=== PATIENT | male | born 1995 | race Asian ===

== ENCOUNTER → 2018-09-21 09:09 | Outpatient (CLI) | payer BC, SELFPAY ==
--- NOTE | 2018-09-21 09:19 | RAD_ITS ---
STUDY: X-RAY CHEST REASON FOR EXAM: Male, 23 years old. Bilateral pneumothorax history TECHNIQUE: Frontal and lateral views of the chest were performed COMPARISON: 13 April 2009 FINDINGS: Examination is moderately limited. The radiograph is overpenetrated making visualization of any and all lung markings difficult. A subtle pneumothorax can be missed. Additionally, an inspiratory/expiratory view was not provided, further limiting evaluation. There are linear interstitial markings in the right apex laterally. These can represent scarring or small loculated pneumothorax. There is surgical suture line in the medial superior apex. There is a surgical suture line in the left lateral apex. There is mild hyperinflation. Assessment of pulmonary parenchyma is extremely limited. Cardiac size is normal. Osseous structures are intact. There is no air under the diaphragms. RAD/Chest PA and Lateral IMPRESSION: 1. Technically limited examination. 2. If question of current pneumothorax evaluation is present a repeat optimal technique examination which includes properly exposed inspiratory and expiratory frontal views is recommended. 3. Right upper lung apical markings, possibly scarring, bulla versus small loculated pneumothorax. Electronically Signed: Ubaldo Nichols, at 16:58 EDT Tel , Service support ,
== END ==
PROVIDERS: Family Provider Family Medicine; PCP Family Medicine; Referring Provider Family Medicine; Visit Provider Family Medicine
DX: Z87.09 Personal history of other diseases of the respiratory system (principal)
CPT/HCPCS: 71046

== ENCOUNTER → 2018-12-24 07:27 | Outpatient (CLI) | payer BC, SELFPAY ==
[2018-12-02 13:21] VITALS: BMI 20.7
--- NOTE | 2018-12-24 14:08 | PFT_ITS ---
INTRODUCTION: The patient is a 23-year-old male that presents for pulmonary function studies secondary to a diagnosis of dyspnea. Respiratory therapy reports good patient effort. Bronchodilators were used during testing. INTERPRETATION: Forced expiration spirometry demonstrates no evidence of a large airways obstructive ventilatory defect. There was no significant response to aerosolized bronchodilators. Spirograms are of good quality and plateau normally. The respiratory flow volume loop is normal. Body plethysmography was performed and reveals an elevated RV to 153% of predicted, of unclear significance. Diffusing capacity by single breath CO is within normal limits. IMPRESSION: Normal spirometry and diffusing capacity. Elevated RV suggestive of mild air-t rapping of unclear significance.
== END ==
PROVIDERS: Family Provider Family Medicine; PCP Family Medicine; Referring Provider Internal Medicine Critical Care Medicine; Visit Provider Internal Medicine Critical Care Medicine
DX: J93.12 Secondary spontaneous pneumothorax (principal); R06.09 Other forms of dyspnea
CPT/HCPCS: 94060; 94726; 94729

== ENCOUNTER → 2020-10-13 15:20 | Outpatient (CLI) | payer BC, SELFPAY ==
[2018-12-02 13:21] VITALS: BMI 20.7
[2020-10-18 03:07] LABS: QNTFERON TB Mitogen Value > 10.00 IU/mL (.); QNTFERON TB Nil Value 0.05 IU/mL (.); QNTFERON TB1+ Ag Value 0.06 IU/mL (.); QNTFERON TB2+ Ag Value 0.05 IU/mL (.)
[2020-10-18 15:06] LABS: QNTIFERON TB Positive Criteria Negative (Negative)
== END ==
PROVIDERS: PCP Family Medicine; Visit Provider Family Medicine
DX: Z02.0 Encounter for examination for admission to educational institution (principal)
CPT/HCPCS: 36415; 86480